=== PATIENT | female | born 1980 | race Caucasian/White ===

== ENCOUNTER → 2017-12-21 08:04 | Emergency (ER) | payer BC ==
[~2017-12-21 08:04] MED LIST: Rivaroxaban TAB(*) 15 MG PO ONE
[2017-12-21 08:57] LABS: ABS Basophils 0.1 10^3/ul (0-0.2); ABS Eosinophils 0.1 10^3/ul (0-0.6); ABS Lymphocytes 2.1 10^3/ul (1.0-4.8); ABS Monocytes 0.9 10^3/ul (0-0.8); ABS Neutrophils 8.3 10^3/ul (1.5-7.7); ABS Nucleated RBC 0 10^3/ul; Eosinophil % 0.8 % (0-6); Hematocrit 42 % (35-47); Lymphocyte % 18.6 % (25-47); Mean Corpuscular HGB Conc 34 g/dl (31-36); Mean Corpuscular Hemoglobin 30 pg (27-31); Mean Corpuscular Volume 89 fL (80-97); Mean Platelet Volume 8.4 um3 (7.4-10.4); Nucleated Red Blood Cells % 0; Platelet Count 222 10^3/ul (150-450); Red Blood Count 4.67 10^6/ul (4.00-5.40); Red Cell Distribution Width 14 % (10.5-15); White Blood Count 11.5 10^3/ul (3.5-10.8)
[2017-12-21 09:14] LABS: EGFR Non-African American 118.3 (>60)
--- NOTE | 2017-12-21 09:31 | ED ---
Upper Extremity Pain - HPI Summary HPI Summary: Pt. is a 37-year-old female who presents emergency department for swelling to her left lower arm that started yesterday. Patient does not recall any specific injuries or falls. She denies any recent intervention or venous puncture to left arm. Patient does note that she had a dental infection last week for which she was placed on amoxicillin. Patient states with infection she did have symptoms swelling to her neck which she believes were reactive lymph nodes which have improved. She denies past medical history. Denies fever , chills, chest pain, shortness of breath. Symptoms are qyks-jw-ksgnbeoe in severity. No current modifying factors. Denies history of smoking. No hormonal control use. - History of Current Complaint Chief Complaint: EDGeneral Stated Complaint: LT ARM SWELLING Time Seen by Provider: 12/21/17 08:11 Hx Obtained From: Patient - Allergies/Home Medications Allergies/Adverse Reactions: Allergies Allergy/AdvReac Type Severity Reaction Status Date / Time No Known Allergies Allergy Verified 12/21/17 08:21 PMH/Surg Hx/FS Hx/Imm Hx Endocrine/Hematology History: Denies: Hx Diabetes Cardiovascular History: Denies: Hx Hypertension, Hx Pacemaker/ICD History: Denies: Hx Dialysis, Hx Renal Disease Sensory History: Denies: Hx Hearing Aid Psychiatric History: Denies: Hx Panic Disorder - Surgical History Surgery Procedure, Year, and Place: GALLBLADDER, Infectious Disease History: No Infectious Disease History: Denies: Traveled Outside the [place] in Last 30 Days - Social History Alcohol Use: None Substance Use Type: Reports: None Smoking Status (MU): Never Smoked Tobacco Review of Systems Constitutional: Negative Cardiovascular: Negative Respiratory: Negative Positive: Other - Swelling to left lower arm Skin: Negative Neurological: Negative Negative: Weakness, Paresthesia, Numbness All Other Systems Reviewed And Are Negative: Yes Physical Exam Triage Information Reviewed: Yes Vital Signs On Initial Exam: Initial Vitals Temp Pulse Resp BP Pulse Ox 98.2 F 118 20 164/111 99 12/21/17 08:05 12/21/17 08:05 12/21/17 08:05 12/21/17 08:05 12/21/17 08:05 Vital Signs Reviewed: Yes Appearance: Positive: Well-Appearing - Pt. sitting on bed in NAD. present. Skin: Positive: Warm, Dry Head/Face: Positive: Normal Head/Face Inspection Eyes: Positive: Normal, EOMI Neck: Positive: Supple, Nontender, Other: - Left submandibular lymphadenopathy. Respiratory/Lung Sounds: Positive: Clear to Auscultation, Breath Sounds Present Cardiovascular: Positive: Normal, RRR Musculoskeletal: Positive: Other - Good palpable left radial pulse. Edema noted to the left lower arm just below elbow to fingertips. Compartment is soft. No erythema, wounds or signs of infection. Neurological: Positive: Normal, CN Intact II-III Psychiatric: Positive: Affect/Mood Appropriate Diagnostics - Vital Signs Vital Signs Temp Pulse Resp BP Pulse Ox 12/21/17 08:05 98.2 F 118 20 164/111 99 - Laboratory Lab Results: Lab Results 12/21/17 12/21/17 Range/Units 08:46 08:46 WBC 11.5 H (3.5-10.8) 10^3/ul RBC 4.67 (4.00-5.40) 10^6/ul Hgb 14.0 (12.0-16.0) g/dl Hct 42 (35-47) % MCV 89 (80-97) fL MCH 30 (27-31) pg MCHC 34 (31-36) g/dl RDW 14 (10.5-15) % Plt Count 222 (150-450) 10^3/ul MPV 8.4 (7.4-10.4) um3 Neut % (Auto) 72.0 (38-83) % Lymph % (Auto) 18.6 L (25-47) % Pepin % (Auto) 7.6 H (0-7) % Eos % (Auto) 0.8 (0-6) % Baso % (Auto) 1.0 (0-2) % Absolute Neuts (auto) 8.3 H (1.5-7.7) 10^3/ul Absolute Lymphs (auto) 2.1 (1.0-4.8) 10^3/ul Absolute Monos (auto) 0.9 H (0-0.8) 10^3/ul Absolute Eos (auto) 0.1 (0-0.6) 10^3/ul Absolute Basos (auto) 0.1 (0-0.2) 10^3/ul Absolute Nucleated RBC 0 10^3/ul Nucleated RBC % 0 Sodium 138 (135-145) mmol/L Potassium 4.0 (3.5-5.0) mmol/L Chloride 104 (101-111) mmol/L Carbon Dioxide 27 (22-32) mmol/L Anion Gap 7 (2-11) mmol/L BUN 10 (6-24) mg/dL Creatinine 0.58 (0.51-0.95) mg/dL Est GFR ( Amer) 143.1 (>60) Est GFR (Non-Af Amer) 118.3 (>60) BUN/Creatinine Ratio 17.2 (8-20) Glucose 108 H (70-100) mg/dL Calcium 8.9 (8.6-10.3) mg/dL Total Bilirubin 0.60 (0.2-1.0) mg/dL AST 15 (13-39) U/L ALT 22 (7-52) U/L Alkaline Phosphatase 44 (34-104) U/L Total Protein 7.0 (6.4-8.9) g/dL Albumin 3.9 (3.2-5.2) g/dL Globulin 3.1 (2-4) g/dL Albumin/Globulin Ratio 1.3 (1-3) Result Diagrams: 12/21/17 08:46 12/21/17 08:46 Lab Statement: Any lab studies that have been ordered have been reviewed, and results considered in the medical decision making process. Course/Dx - Course Course Of Treatment: Pt. presenting for left lower arm swelling. No signs of infection. BP and HR initially elevate. Afebrile. Will obtain basic labs and u/ s for further evaluation. U/S read per radiology: IMPRESSION: OCCLUSIVE THROMBUS NOTED WITHIN THE LEFT INTERNAL JUGULAR VEIN, SUBCLAVIAN VEIN, AND. AXILLARY VEIN. Case discussed with Dr. Jarquin who recommend consult with hematology for further recommendation and treatment. I spoke with Dr. Rocha, hematology, who recommended ordering a hypercoagulable panel. Concern for underlying disease. He feels pt. would be okay to dc home for outpt. treatment. Discussed with Dr. Jarquin and will start on xarelto, first dose given in ER after additional blood drawn. Findings and plan were discussed with pt. She now notes that she did have an issue with clotting during her prior pregnancies. 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 VS have improved. To call PCP and Dr. Rocha's office tomorrow for close f.u apt. Will need additional rx for xarelto. Advised to return to ER for increased swelling, pain, chest pain, shortness of breath or if concerned. Pt. and understand and agree with plan. - Diagnoses Differential Diagnosis/HQI/PQRI: Positive: Hematoma, Strain, Sprain Provider Diagnoses: DVT of upper extremity (deep vein thrombosis) Discharge - Sign-Out/Discharge Documenting (check all that apply): Patient Departure - Discharge Plan Condition: Good Disposition: HOME Prescriptions: Rivaroxaban TAB(*) [Xarelto 15 mg(*)] 15 mg PO BID #42 tab Patient Education Materials: Deep Vein Thrombosis (ED) Referrals: Dustin Rocha MD [Medical Doctor] - Ronny Clay MD [Primary Care Provider] - Additional Instructions: You will need to schedule a follow up appointment with your PCP and hematology for further treatment and evaluation of blood clots Take xarelto as directed Return to ER for increased swelling, pain, chest pain, shortness of breath, or if concerned - Billing Disposition and Condition Condition: GOOD Disposition: Home
--- NOTE | 2017-12-21 10:20 | RAD ---
HISTORY: arm swelling COMPARISONS: None relevant TECHNIQUE: Multiple transverse and longitudinal ultrasound images were obtained of the left upper extremity from the level of the internal jugular vein inferiorly through to the infra-cubital veins using grayscale, color Doppler, and spectral Doppler imaging with and without compression and with augmentation. Comparison images were obtained of the contralateral internal jugular vein and subclavian vein. FINDINGS: VEINS: There is occlusive thrombus noted within the left internal jugular vein extending inferiorly into the subclavian vein. 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 There is occlusive thrombus noted within the axillary vein. SOFT TISSUES: Unremarkable. OTHER FINDINGS: None. IMPRESSION: OCCLUSIVE THROMBUS NOTED WITHIN THE LEFT INTERNAL JUGULAR VEIN, SUBCLAVIAN VEIN, AND AXILLARY VEIN
[2017-12-21 11:51] LABS: INR 0.97 (0.77-1.02)
[2017-12-21 13:38] VITALS: BP 139/96
== END | disposition home or self-care (01) ==
LOC: ED 08:04
DX: I82.622 Acute embolism and thrombosis of deep veins of left upper extremity (principal)
CPT/HCPCS: 36415; 80053; 81240; 81241; 83090; 84702; 85025; 85300; 85303; 85306; 85307; 85610; 85613; 85730; 86147; 99283

== ENCOUNTER 2018-06-11 14:15 | Emergency (ER) | payer BC ==
--- OUTSIDE RECORDS SUMMARY | 2018-06-11 14:20 | XMS REPORT | Continuity of Care Document ---
:1980 External Reference #:[id number] Author Name Michael Long MD Address [facility] [place] [address] Care Team Providers Name Role Phone Abdoulaye Araiza MD Care Team Information Data Conversion Analyst Unavailable Payers Type Date Identification Numbers Payment Provider Subscriber Policy Number: [id number] [employer]aca PayID: [id number] [address] [address] [place] [address] Advance Directives Description No Information Available Problems Date Description Provider Status Onset: 05/18/2018 Diarrhea Michael Long MD Active Onset: 05/18/2018 Antiplatelet agent Michael Long MD Active Onset: 05/18/2018 Gastroesophageal reflux disease Michael Long MD Active Family History Date Family Member(s) Problem(s) Comments Father No Current Problems Mother No Current Problems Social History Type Date Description Comments Sex Unknown Tobacco Use Start: Unknown Patient has never smoked Smoking Status Reviewed: 05/18/18 Patient has never smoked Allergies, Adverse Reactions, Alerts Description No Known Drug Allergies Medications Medication Date Status Form Strength Qnty SIG Indications Ordering Provider Cholestyramine 05/18/19 Active Powder 4GM/Dose 30units 1 by Michael Rose mouth MD Mercedes every day Xarelto Active Tablets 20mg Garbo,Charl 00 MD danelle Immunizations Description No Information Available Vital Signs Date Vital Result Comment 05/18/2018 3:34pm Height 64 inches 5'4" Weight 318.00 lb BP Systolic 151 mmHg BP Diastolic 101 mmHg Heart Rate 79 /min BMI (Body Mass Index) 54.6 kg/m2 Results Description No Information Available Procedures Description No Information Available Encounters Description No Information Available Plan of Treatment Future Appointment(s):06/13/2018 8:45 am - Michael Long MD at [facility]05/18/2018 - Michael Long MDK21.9 Gastro- esophageal reflux disease without esophagitisComments:RISKS AND BENEFITS OF THE PROCEDURE WERE DISCUSSED WITH PATIENT. I had a long discussion with the patient regarding her GERD symptoms. It seems to be related to abdominal pressure and bending over.She has minimal typical GERD symptoms no alarm symptoms. 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 I will be taking very small mucosal cezdeidqV31.7 Diarrhea, unspecifiedComments:I had a long discussion with the patient regarding her diarrhea. It all began after her cholecystectomy. 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 We discussed the use of cholestyramine. I did call this in for her.
[2018-06-11 14:27] VITALS: BP 141/91
--- NOTE | 2018-06-11 14:34 | UC ---
Lower Extremity/Ankle HPI - HPI Summary HPI Summary: 37 yo female presents with RIGHT ankle pain. She tells me that earlier today she slipped on the ice and landed on her right knee with her right ankle bent awkwardly underneath her as she landed on it. Has severe pain with weight bearing. Has not taken anything OTC for her discomfort. Denies numbness or tingling. She is ambulatory with crutches. - History of Current Complaint Chief Complaint: UCLowerExtremity Stated Complaint: ANKLE INJURY Time Seen by Provider: 06/11/18 14:33 Hx Obtained From: Patient Hx Last Menstrual Period: unknown, less than a month Onset/Duration: Sudden Onset Severity Initially: Severe Severity Currently: Severe Pain Intensity: 8 Pain Scale Used: 0-10 Numeric Aggravating Factor(s): Standing, Ambulation Alleviating Factor(s): Rest, Elevation Able to Bear Weight: Yes - Allergies/Home Medications Allergies/Adverse Reactions: Allergies Allergy/AdvReac Type Severity Reaction Status Date / Time No Known Allergies Allergy Verified 12/21/17 08:21 Home Medications: Home Medications Rivaroxaban TAB(*) [Xarelto 15 mg(*)] 20 mg PO DAILY 06/11/18 [History] PMH/Surg Hx/FS Hx/Imm Hx - Additional Past Medical History Additional PMH: Factor 5 - Surgical History Surgical History: Yes Surgery Procedure, Year, and Place: GALLBLADDER, - Family History Known Family History: Positive: Non-Contributory - Social History Occupation: Employed Full-time Lives: With Family Alcohol Use: None Substance Use Type: None Smoking Status (MU): Never Smoked Tobacco - Immunization History Most Recent Influenza Vaccination: Has Not received this Season Most Recent Tetanus Shot: Pt reports was >2 yrs ago Most Recent Pneumonia Vaccination: N/A Review of Systems All Other Systems Reviewed And Are Negative: Yes Constitutional: Positive: Negative Skin: Positive: Negative Respiratory: Positive: Negative Cardiovascular: Positive: Negative Neurovascular: Positive: Negative Musculoskeletal: Positive: Other: - Right ankle pain Neurological: Positive: Negative Psychological: Positive: Negative Physical Exam - Summary Physical Exam Summary: GENERAL: NAD. WDWN. No pain distress. SKIN: No rashes, sores, lesions, or open wounds. CHEST: No accessory muscle use. Breathing comfortably and in no distress. CV: Pulses intact PT and DP. Cap refill <2seconds MSK: RIGHT ANKLE: Moderate edema overlying lateral malleolus. Moderate TTP at lateral malleolus. FROM, but decreased in all direction due to pain. Negative talar tilt. No increased laxity. Negative Chana test. NEURO: Alert. Sensations intact and symmetric B/L LEs PSYCH: Age appropriate behavior. Triage Information Reviewed: Yes Vital Signs: Initial Vital Signs Temp 98.5 F 06/11/18 14:23 Pulse 90 06/11/18 14:23 Resp 16 06/11/18 14:23 BP 141/91 06/11/18 14:23 Pulse Ox 100 06/11/18 14:23 Vital Signs Reviewed: Yes Lower Extremity Course/Dx - Course Course Of Treatment: XR: IMPRESSION: SOFT TISSUE SWELLING OVERLYING THE FIBULAR MALLEOLUS WITHOUT UNDERLYING. FRACTURE OR DISLOCATION. If the patient's symptoms persist, follow-up imaging is recommended. Suspect ankle sprain. Pt was placed in a gel ankle splint and advised to continue using her crutches. PAUL. She was given tylenol in the clinic for pain and did not have much relief , thus is asking for something stronger - will rx for short course of norco as she cannot take NSAIDs due to anticoagulation. If symptoms do not improve - f/u with Ortho. - Differential Dx/Diagnosis Provider Diagnosis: Right ankle sprain Discharge - Sign-Out/Discharge Documenting (check all that apply): Patient Departure All imaging exams completed and their final reports reviewed: Yes - Discharge Plan Condition: Stable Disposition: HOME Prescriptions: HYDROcodone/ACETAMIN 5-325 MG* [[place] 5-325 TAB*] 1 tab PO BID PRN #6 tab MDD 2 PRN Reason: Pain Patient Education Materials: Ankle Sprain (ED) Forms: *Work Release Referrals: Ronny Clay MD [Primary Care Provider] - Mohit Newsome MD [Medical Doctor] - If Needed Additional Instructions: If you develop a fever, shortness of breath, chest pain, new or worsening symptoms - please call your PCP or go to the ED. Your blood pressure was high at todays visit. Please see your primary provider within 4 weeks for recheck and re-evaluation. 1) Rest, Ice, and elevate your ankle as much as possible 2) Use your crutches and ankle splint as much as possible to reduce pain and swelling 3) If your symptoms do not improve in 10-14 days, please call Orthopedics at the number below to schedule a follow up appointment - Billing Disposition and Condition Condition: STABLE Disposition: Home
[2018-06-11] MEDS ORDERED: Acetaminophen TAB* 325 MG PO ONE (14:39)
== END 2018-06-11 15:49 | disposition home or self-care (01) ==
LOC: UCEAST 14:15
DX: S93.401A Sprain of unspecified ligament of right ankle, initial encounter (principal); W18.40XA Slipping, tripping and stumbling without falling, unspecified, initial encounter; Y92.9 Unspecified place or not applicable
CPT/HCPCS: 99213; A9270-GY; G0463

== ENCOUNTER 2019-05-12 14:43 | Emergency (ER) | payer BC ==
--- NOTE | 2019-05-12 16:02 | ED ---
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 Patient states her respiratory symptoms including cough and nasal congestion began approximately 12 days ago and have become acutely worse in the last 2 days. Patient endorses a productive cough and excessive coughing. Patient states because she has been coughing so much she thinks she may have pulled a muscle and now has chest pain. Patient presents to the emergency department today as she is concerned she may have another blood clot as she has not passed. Patient is currently denying fever, abdominal pain, shortness of breath , pain with urination, rash. Patient has full range of motion of her left arm with good capillary refill and 2+ radial pulse. There is no evidence of edema, erythema or ecchymosis in the left arm. Surgical history and social history noncontributory. - History of Current Complaint Chief Complaint: EDExtremityUpper Stated Complaint: LEFT ARM PAIN Time Seen by Provider: 05/12/19 15:46 Hx Obtained From: Patient Hx Last Menstrual Period: unknown, less than a month Onset/Duration: Started Weeks Ago Timing: Constant Severity Initially: Mild Severity Currently: Moderate Pain Location: Arm Character: Aching Aggravating Factor(s): Movement, Other - Coughing Alleviating Factor(s): Rest Associated Signs & Symptoms: Positive: SOB. Negative: Swelling, Redness, Bruising, Fever, Numbness/Tingling - Allergies/Home Medications Allergies/Adverse Reactions: Allergies Allergy/AdvReac Type Severity Reaction Status Date / Time No Known Allergies Allergy Verified 05/12/19 15:00 Home Medications: Home Medications Rivaroxaban TAB(*) [Xarelto 10 mg (*)] 10 mg PO DAILY 05/12/19 [History Confirmed 05/12/19] PMH/Surg Hx/FS Hx/Imm Hx Endocrine/Hematology History: Denies: Hx Diabetes Cardiovascular History: Denies: Hx Hypertension, Hx Pacemaker/ICD History: Denies: Hx Dialysis, Hx Renal Disease Sensory History: Denies: Hx Hearing Aid Psychiatric History: Denies: Hx Panic Disorder - Surgical History Surgery Procedure, Year, and Place: GALLBLADDER, Infectious Disease History: No Infectious Disease History: Denies: Traveled Outside the [place] in Last 30 Days - Family History Known Family History: Positive: Non-Contributory - Social History Alcohol Use: Rare Substance Use Type: Reports: None Smoking Status (MU): Never Smoked Tobacco Review of Systems Constitutional: Negative Eyes: Negative ENT: Negative Cardiovascular: Negative Positive: Shortness Of Breath, Cough Gastrointestinal: Negative Genitourinary: Negative Positive: Myalgia, Other - chest wall pain Skin: Negative Neurological: Negative Psychological: Normal All Other Systems Reviewed And Are Negative: Yes Physical Exam - Summary Physical Exam Summary: Patient is in no acute respiratory distress with no accessory muscle use. Patient is able to speak in full unbroken sentences Triage Information Reviewed: Yes Vital Signs On Initial Exam: Initial Vitals Temp Pulse Resp BP Pulse Ox 98.3 F 88 16 139/88 95 05/12/19 14:56 05/12/19 14:56 05/12/19 14:56 05/12/19 14:56 05/12/19 14:56 Vital Signs Reviewed: Yes Appearance: Positive: Well-Appearing, No Pain Distress, Well-Nourished, Obese Skin: Positive: Warm, Skin Color Reflects Adequate Perfusion Eyes: Positive: EOMI, RUPERT ENT: Positive: Hearing grossly normal Respiratory/Lung Sounds: Positive: Breath Sounds Present, Decreased Breath Sounds Cardiovascular: Positive: RRR, S1, S2 Abdomen Description: Positive: Nontender, Soft Bowel Sounds: Positive: Present Musculoskeletal: Positive: Strength/ROM Intact Neurological: Positive: Sensory/Motor Intact, Alert, Oriented to Person Place, Time, Normal Gait, Facial Symmetry, Speech Normal Psychiatric: Positive: Normal AVPU Assessment: Alert Procedures - Sedation Patient Received Moderate/Deep Sedation with Procedure: No Diagnostics - Vital Signs Vital Signs Temp Pulse Resp BP Pulse Ox 05/12/19 15:51 94 152/96 98 05/12/19 14:56 98.3 F 88 16 139/88 95 - Laboratory Result Diagrams: 05/12/19 16:54 05/12/19 16:54 Lab Statement: Any lab studies that have been ordered have been reviewed, and results considered in the medical decision making process. Course/Dx - Course Course Of Treatment: Patient was evaluated in the emergency department today for shortness of breath and left arm pain. Patient seen and examined her vitals are stable and she is afebrile. Chest x-ray was done which showed left lower lobe infiltrate. Laboratory results show no abnormalities. No leukocytosis and no elevation in d-dimer ruling out the possibility of a blood clot. Patient was given 1 dose of doxycycline 100 mg by mouth in the emergency department and given a prescription for 7 days worth of doxycycline 100 mg twice a day. Patient is to follow-up with her primary care provider in 3 days for further evaluation and management. - Diagnoses Differential Diagnosis/HQI/PQRI: Positive: Other - Blood clot, viral URI Provider Diagnoses: Pneumonia Discharge ED - Sign-Out/Discharge Documenting (check all that apply): Patient Departure - Discharge Plan Condition: Stable Disposition: HOME Prescriptions: DOXYcycline CAP(*) [DOXYcycline 100MG CAP(*)] 100 mg PO BID 7 Days #14 cap Patient Education Materials: Community Acquired Pneumonia (ED) Forms: *Work Release Referrals: Ronny Ceballos MD [Primary Care Provider] - 3 Days Additional Instructions: You were seen in the emergency department today and diagnosed with pneumonia. This is treated with antibiotics; I sent a prescription for doxycycline 100 mg to your pharmacy which is to be taken twice daily for 7 days. Please follow-up with your primary care physician in 3 days for further evaluation and management. Please return to the emergency department immediately if you develop any new or worsening symptoms. You may also take Tylenol as needed for fever. - Billing Disposition and Condition Condition: STABLE Disposition: Home - Attestation Statements Provider Attestation: I was available for consult. This patient was seen by the GUILLE. The patient was not presented to, seen by, or examined by me. Aditya Durant MD
[2019-05-12 16:30] LABS: Influenza A Molecular NEGATIVE (Negative); Influenza B Molecular NEGATIVE (Negative)
[2019-05-12] MEDS ORDERED: DOXYcycline CAP(*) 100 MG PO ONE (16:40)
[2019-05-12 17:11] LABS: ABS Eosinophils 0.1 10^3/ul (0-0.6); ABS Lymphocytes 2.4 10^3/ul (1.0-4.8); ABS Monocytes 0.8 10^3/ul (0-0.8); Eosinophil % 1.3 %; Hematocrit 42 % (35-47); Hemoglobin 14.8 g/dL (12.0-16.0); Lymphocyte % 25.6 %; Mean Corpuscular HGB Conc 35 g/dL (31-36); Mean Corpuscular Hemoglobin 31 pg (27-31); Mean Corpuscular Volume 90 fL (80-97); Mean Platelet Volume 8.4 fL (7.4-10.4); Nucleated Red Blood Cells % 0.1; Platelet Count 213 10^3/uL (150-450); Red Blood Count 4.72 10^6 /uL (3.70-4.87); Red Cell Distribution Width 14 % (10-15); White Blood Count 9.4 10^3/uL (3.5-10.8)
[2019-05-12 17:26] LABS: Albumin/Globulin Ratio 1.5 (1-3); BUN/Creatinine Ratio 18.9 (8-20); Calcium 8.8 mg/dL (8.6-10.3); EGFR African American 157.9 (>60); EGFR Non-African American 130.5 (>60); Globulin 2.7 g/dL (2-4); Total Bilirubin 0.4 mg/dL (0.2-1.0); Total Protein 6.7 g/dL (6.4-8.9)
[2019-05-12 17:46] VITALS: BP 125/86
== END 2019-05-12 17:50 | disposition home or self-care (01) ==
LOC: ED 14:43
DX: J18.9 Pneumonia, unspecified organism (principal); R06.02 Shortness of breath; R05 Cough; Z79.899 Other long term (current) drug therapy
CPT/HCPCS: 36415; 71046; 80053; 85025; 85379; 99283; A9270-GY

== ENCOUNTER 2019-05-23 08:20 | Emergency (ER) | payer BC ==
[2019-05-23 08:28] VITALS: BP 130/85
--- NOTE | 2019-05-23 08:54 | UC ---
Respiratory Complaint HPI - HPI Summary HPI Summary: 38 yo female with cough x 2-3 weeks dxed with pneumonia rxed with doxy feels better c/o persistent cough, SILVA, Wheezing - History of Current Complaint Chief Complaint: UCRespiratory Stated Complaint: COUGH Time Seen by Provider: 05/23/19 08:46 Hx Obtained From: Patient Hx Last Menstrual Period: Onset/Duration: Gradual Onset, Lasting Days Timing: Constant Severity Initially: Moderate Severity Currently: Mild Pain Intensity: 3 Pain Scale Used: 0-10 Numeric Character: Cough: Productive Aggravating Factors: Other Alleviating Factors: Nothing Associated Signs And Symptoms: Positive: Dyspnea - at time, Wheezing - Allergies/Home Medications Allergies/Adverse Reactions: Allergies Allergy/AdvReac Type Severity Reaction Status Date / Time No Known Allergies Allergy Verified 05/23/19 08:28 PMH/Surg Hx/FS Hx/Imm Hx Previously Healthy: Yes Cardiovascular History: Deep Vein Thrombosis Respiratory History: Pneumonia - Surgical History Surgical History: Yes Surgery Procedure, Year, and Place: GALLBLADDER, - Family History Known Family History: Positive: Blood Disorder, Non-Contributory - Social History Alcohol Use: Rare Substance Use Type: None Smoking Status (MU): Never Smoked Tobacco - Immunization History Most Recent Influenza Vaccination: Has Not received this Season Most Recent Tetanus Shot: Pt reports was >2 yrs ago Most Recent Pneumonia Vaccination: N/A Review of Systems All Other Systems Reviewed And Are Negative: Yes Constitutional: Positive: Fatigue Skin: Positive: Negative Eyes: Positive: Negative ENT: Positive: Negative Respiratory: Positive: Shortness Of Breath - with exertion, Cough Cardiovascular: Positive: Negative Gastrointestinal: Positive: Negative Genitourinary: Positive: Negative Motor: Positive: Negative Neurovascular: Positive: Negative Musculoskeletal: Positive: Negative Neurological: Positive: Negative Psychological: Positive: Negative Physical Exam Triage Information Reviewed: Yes Appearance: Well-Appearing, No Pain Distress, Well-Nourished Vital Signs: Initial Vital Signs Temp 97.8 F 05/23/19 08:23 Pulse 74 05/23/19 08:23 Resp 20 05/23/19 08:23 BP 130/85 05/23/19 08:23 Pulse Ox 98 05/23/19 08:23 Vital Signs Reviewed: Yes Eyes: Positive: Conjunctiva Clear ENT: Positive: Hearing grossly normal. Negative: Nasal congestion, Nasal drainage, Trismus, Muffled voice, Hoarse voice Dental Exam: Normal Neck: Positive: Supple, Nontender, No Lymphadenopathy Respiratory: Positive: No respiratory distress, No accessory muscle use, Crackles - left base, Wheezing - throughout Cardiovascular: Positive: RRR Diagnostics - Radiology No standard instances Radiology Interpretation Completed By: Radiologist Summary of Radiographic Findings: IMPRESSION: LEFT LOWER LOBE INFILTRATE SLIGHTLY IMPROVED. RECOMMEND FOLLOW-UP CHEST X-RAYS TO RESOLUTION Re-Evaluation - Re-Evaluation First Eval Re-Evaluation Time: 10:25 Change: Improved - no wheezes, left LL rales Respiratory Course/Dx - Differential Dx/Diagnosis Provider Diagnosis: Pneumonia, Bronchospasm Discharge ED - Sign-Out/Discharge Documenting (check all that apply): Patient Departure All imaging exams completed and their final reports reviewed: Yes - Discharge Plan Condition: Improved Disposition: HOME Prescriptions: Azithromycin TAB* [Zithromax TAB*] 250 mg PO DAILY #6 tab predniSONE 20 mg TAB [Deltasone 20 MG TAB*] 40 mg PO DAILY #8 tab Patient Education Materials: Bronchospasm (ED), Pneumonia (ED) Forms: *Work Release Referrals: Ronny Ceballos MD [Primary Care Provider] - 2 Weeks Additional Instructions: you will need a recheck CXR in a few weeks we want to make sure your pneumonia completely clears rest fluids mucinex or robitussin - Billing Disposition and Condition Condition: IMPROVED Disposition: Home
[2019-05-23] MEDS ORDERED: Albuterol 2.5 MG/3 ML NEB.SOL* (0.083%) INH ONE (09:03)
[2019-05-23] MEDS ORDERED: Ipratropium 0.5MG/2.5ML NEB* 0.5 MG/2.5 ML NEB.SOLN INH ONE (09:03)
[2019-05-23] MEDS ORDERED: Albuterol HFA INHALER* 8 gm MDI INH ONE (10:21)
== END 2019-05-23 10:37 | disposition home or self-care (01) ==
LOC: UCEAST 08:20
DX: J18.9 Pneumonia, unspecified organism (principal); J98.01 Acute bronchospasm; R91.8 Other nonspecific abnormal finding of lung field
CPT/HCPCS: 71046; 99212; A9270-GY; G0463; J7512

== ENCOUNTER 2020-03-27 05:46 | Inpatient (IN) ==
[2020-03-27] MEDS ORDERED: Lactated Ringers 1000 ml BAG 1,000 ML IV SCH (06:00)
[2020-03-27] MEDS ORDERED: Dexamethasone IV 4 MG/ML VIAL 1 ml VIAL IV SLOW PU ONE (06:00)
[2020-03-27] MEDS ORDERED: Buffered Lidocaine 1% SYRIN 1 ml INTRADERM ONE ×3 (06:00→06:55)
[2020-03-27] MEDS ORDERED: ceFAZolin 2 GM PREMIX 2 GM/50 ML BAG ONE (06:07)
[2020-03-27] MEDS ORDERED: Dexamethasone IV 4 MG/ML VIAL 1 ml VIAL ONE (06:07)
[2020-03-27] MEDS ORDERED: Heparin 5000 UNITS/ML 1 mL VIAL ONE (06:07)
[2020-03-27] MEDS ORDERED: ceFAZolin 1 GM ADVAN 1 GM ADDV.VIAL IVPB ONE (06:08)
[2020-03-27] MEDS ORDERED: Sodium Citrate/Citric Acid LIQ 15 ML UDC ONE (06:55)
[2020-03-27] MEDS ORDERED: Famotidine IV 10 MG/ML 2 ml VIAL (20 mg) ONE (06:55)
[2020-03-27] MEDS ORDERED: Bupivacaine 0.25% SDV PF 10 ML VIAL INJ ONE ×2 (07:09→07:10)
[2020-03-27] MEDS ORDERED: Lidocaine 1% w EPI 1:100,000 MDV 20 ML VIAL ONE (07:09)
[2020-03-27] MEDS ORDERED: fentaNYL 250 mcg/5 ml 50 MCG/ML 5 ml VIAL (250 MCG) ONE (07:12)
[2020-03-27] MEDS ORDERED: Rocuronium 50 mg VIAL 10 mg/ml 5 ml VIAL (50 mg) ONE ×2 (07:12→08:09)
[2020-03-27] MEDS ORDERED: Midazolam 2 mg/2 ml VIAL 1 mg/ml 2 ml VIAL (2 mg) ONE (07:13)
[2020-03-27] MEDS ORDERED: Propofol 10 MG/ML 20 ML BTL ONE (07:13)
[2020-03-27] MEDS ORDERED: Naloxone 0.4 mg VIAL 0.4 mg/ml 1 ml VIAL IV PRN (07:59)
[2020-03-27] MEDS ORDERED: Ondansetron 4 mg VIAL 2 MG/ML 2 ml VIAL IV PRN (07:59)
[2020-03-27] MEDS ORDERED: HYDROmorphone 1 MG/1 ML SYRINGE ONE ×2 (08:00→10:36)
[2020-03-27] MEDS ORDERED: Sevoflurane BOTTLE ONE (09:11)
[2020-03-27] MEDS ORDERED: Acetaminophen IV 1 GM/100ML 100 ML ONE (09:17)
[2020-03-27] MEDS ORDERED: Ondansetron 4 mg VIAL 2 MG/ML 2 ml VIAL ONE ×2 (09:42→11:00)
[2020-03-27] MEDS ORDERED: Sugammadex 500 MG/5 ML 5 ml VIAL IV PUSH ONE (09:42)
[2020-03-27] MEDS ORDERED: fentaNYL 100 mcg/2 ml 50 MCG/ML VIAL ONE ×3 (09:57→10:32)
[2020-03-27] MEDS: fentaNYL 100 mcg/2 ml 50 MCG/ML VIAL IV PRN ×4 (10:32→10:45)
[2020-03-27] MEDS: HYDROmorphone 1 MG/1 ML SYRINGE IV PRN ×5 (10:36→11:48)
[2020-03-27] MEDS ORDERED: diPHENhydraMINE IV 50 MG/ML 1 ml VIAL (BENADRYL) SLOW PUSH PRN (10:37)
[2020-03-27] MEDS ORDERED: HYDROcodone/ACET. 7.5/325 LIQ 15 ML UDC ONE (10:55)
[2020-03-27] MEDS: HYDROcodone/ACET. 7.5/325 LIQ 15 ML UDC PO PRN ×2 (10:57→20:14)
[2020-03-27] MEDS ORDERED: diPHENhydraMINE IV 50 MG/ML 1 ml VIAL (BENADRYL) SLOW PUSH ONE (11:27)
[2020-03-27] MEDS: Lactated Ringers 1000 ml BAG 1,000 ML IV SCH ×2 (12:09→18:24)
[2020-03-27] MEDS: Heparin 5000 UNITS/ML 1 mL VIAL SUBCUT SCH ×2 (14:09→22:08)
[2020-03-27] MEDS: HYDROmorphone 0.5 MG/0.5 ML SYRINGE IV SLOW PU PRN (16:31)
[2020-03-27] MEDS: Famotidine IV 10 MG/ML 2 ml VIAL (20 mg) IV SLOW PU SCH (20:15)
[2020-03-28] MEDS: Lactated Ringers 1000 ml BAG 1,000 ML IV SCH ×2 (01:02→07:51)
[2020-03-28] MEDS: HYDROmorphone 0.5 MG/0.5 ML SYRINGE IV SLOW PU PRN (01:06)
[2020-03-28] MEDS: Ondansetron 4 mg VIAL 2 MG/ML 2 ml VIAL IV PRN ×2 (01:16→23:50)
[2020-03-28] MEDS: Heparin 5000 UNITS/ML 1 mL VIAL SUBCUT SCH ×3 (06:07→21:01)
[2020-03-28 07:05] LABS: ABS Basophils 0.1 10^3/ul (0-0.2); ABS Lymphocytes 1.8 10^3/ul (1.0-4.8); ABS Neutrophils 8.2 10^3/ul (1.5-7.7); Eosinophil % 0.2 %; Hematocrit 40 % (35-47); Hemoglobin 13.6 g/dL (12.0-16.0); Lymphocyte % 16.5 %; Mean Corpuscular HGB Conc 34 g/dL (31-36); Mean Corpuscular Hemoglobin 31 pg (27-31); Mean Corpuscular Volume 91 fL (80-97); Platelet Count 184 10^3/uL (150-450); Red Blood Count 4.43 10^6 /uL (3.70-4.87); Red Cell Distribution Width 14 % (10-15); White Blood Count 11.1 10^3/uL (3.5-10.8)
[2020-03-28 07:22] LABS: Calcium 8.5 mg/dL (8.6-10.3); EGFR African American 136.1 (>60); EGFR Non-African American 112.5 (>60); Potassium 3.8 mmol/L (3.5-5.0)
[2020-03-28] MEDS: Famotidine IV 10 MG/ML 2 ml VIAL (20 mg) IV SLOW PU SCH ×2 (08:23→21:01)
[2020-03-28] MEDS: HYDROcodone/ACET. 7.5/325 LIQ 15 ML UDC PO PRN ×2 (11:42→17:27)
[2020-03-28] MEDS: D5W 1/2 NS KCl 20 meq 1000 ml 1,000 ML IV SCH ×2 (14:27→23:23)
[2020-03-29] MEDS: HYDROcodone/ACET. 7.5/325 LIQ 15 ML UDC PO PRN ×2 (00:58→07:44)
[2020-03-29] MEDS: Heparin 5000 UNITS/ML 1 mL VIAL SUBCUT SCH (05:23)
[2020-03-29] MEDS: Famotidine IV 10 MG/ML 2 ml VIAL (20 mg) IV SLOW PU SCH (07:43)
[2020-03-29] MEDS: D5W 1/2 NS KCl 20 meq 1000 ml 1,000 ML IV SCH (07:43)
[2020-03-29 10:55] VITALS: BP 100/54
[2020-03-30] MEDS ORDERED: Scopolamine PATCH Remove NOTE PATCH OFF SCH (17:00)
== END 2020-03-29 13:00 | disposition home or self-care (01) | DRG 403 ==
LOC: AA 05:46 → SSU 10:23
PROVIDERS: ADMIT Surgery; ATTEND Surgery